=== PATIENT | male | born 1955 | race Caucasian/White ===

== ENCOUNTER 2021-11-14 11:57 | Outpatient (CLI) | payer OTHER ==
[~2021-11-14 11:57] MED LIST: Iopamidol 300 61% 100 ML VIAL FS ONE
== END 2021-11-14 11:58 | disposition home or self-care (01) ==
LOC: CSHCT 11:57
PROVIDERS: ATTEND Internal Medicine
DX: M54.59 Other low back pain (principal); Z87.442 Personal history of urinary calculi; N20.0 Calculus of kidney; K57.30 Diverticulosis of large intestine without perforation or abscess without bleeding; K76.9 Liver disease, unspecified
CPT/HCPCS: 74178; 76770; 82565; Q9967